=== PATIENT | female | born 1985 ===

== ENCOUNTER 2016-07-11 08:09 | Emergency (ER) | payer OTHER ==
[2016-07-11 08:09] VITALS: BMI 25.3
[2016-07-11 08:30] VITALS: BP 111/66; O2SAT 100
--- NOTE | 2016-07-11 08:34 | ED PDOC ---
HPI: General Adult Time Seen by Provider: 07/11/16 08:15 Chief Complaint (Nursing): Fever Chief Complaint (Provider): Fever History Per: Patient Onset/Duration Of Symptoms: Days (x6 days) Current Symptoms Are (Timing): Still Present Additional Complaint(s): 31 y/o female who presents to the emergency department with a complaint of a fever and a cough with sputum (green) since 07/06/2016. Patient states her son was diagnosed with pneumonia. Denies shortness of breath and vomiting. PMD: None Past Medical History Reviewed: Historical Data, Nursing Documentation, Vital Signs Vital Signs: Last Vital Signs Temp 101 F H 07/11/16 08:37 Pulse 94 H 07/11/16 08:22 Resp BP 111/66 07/11/16 08:22 Pulse Ox 100 07/11/16 08:36 - Medical History PMH: No Chronic Diseases - Surgical History Surgical History: No Surg Hx - Family History Family History: States: Unknown Family Hx - Social History Current smoker - smoking cessation education provided: No Alcohol: None Drugs: Denies - Immunization History Hx Tetanus Toxoid Vaccination: No Hx Influenza Vaccination: No Hx Pneumococcal Vaccination: No - Home Medications Home Medications: Ambulatory Orders Medication Instructions Recorded Azithromycin [Zithromax] 250 mg PO DAILY #6 tab 07/11/16 Promethazine/Codeine 5 ml PO Q8 #60 ml 07/11/16 [Codeine/Promethazine 10 MG/5 Ml-6.25 MG/5 Ml] - Allergies Allergies/Adverse Reactions: Allergies Allergy/AdvReac Type Severity Reaction Status Date / Time No Known Allergies Allergy Verified 07/11/16 08:13 Review of Systems ROS Statement: Except As Marked, All Systems Reviewed And Found Negative Constitutional: Positive for: Fever Respiratory: Positive for: Cough, Sputum (Green). Negative for: Shortness of Breath Gastrointestinal: Negative for: Vomiting Physical Exam - Reviewed Nursing Documentation Reviewed: Yes Vital Signs Reviewed: Yes - Physical Exam Appears: Positive for: Non-toxic, No Acute Distress Head Exam: Positive for: ATRAUMATIC, NORMOCEPHALIC Skin: Positive for: Normal Color, Warm, Dry ENT: Positive for: Normal ENT Inspection. Negative for: Pharyngeal Erythema Neck: Positive for: Normal, Supple Cardiovascular/Chest: Positive for: Regular Rate, Rhythm. Negative for: Murmur Respiratory: Positive for: Rhonchi (Scattered rhonchi to the left side). Negative for: Accessory Muscle Use, Wheezing, Respiratory Distress Neurologic/Psych: Positive for: Alert, Oriented - ECG O2 Sat by Pulse Oximetry: 100 (RA) Pulse Ox Interpretation: Normal Medical Decision Making Medical Decision Making: Time: 8:15 Initial impression: Initial plan: --ED Urine (POC) --Chest Portable (RAD) --Tylenol 650 mg PO --Influenza A B Stat --Revaluation Scribe Attestation: Documented by Queenie Couch, acting as a scribe for Barry Pastor MD. Provider Scribe Attestation: All medical record entries made by the Scribe were at my direction and personally dictated by me. I have reviewed the chart and agree that the record accurately reflects my personal performance of the history, physical exam, medical decision making, and the department course for this patient. I have also personally directed, reviewed, and agree with the discharge instructions and disposition. Disposition - Clinical Impression Clinical Impression: Bronchitis - Patient ED Disposition Is Patient to be Admitted: No Counseled Patient/Family Regarding: Studies Performed, Diagnosis, Need For Followup, Rx Given - Disposition Referrals: [facility] [Outside] Disposition: Routine/Home Disposition Time: 09:07 Condition: FAIR Prescriptions: Promethazine/Codeine [Codeine/Promethazine 10 MG/5 Ml-6.25 MG/5 Ml] 5 ml PO Q8 # 60 ml Azithromycin [Zithromax] 250 mg PO DAILY #6 tab Instructions: Acute Bronchitis (ED)
[2016-07-11 09:16] VITALS: PULSE 87; TEMP 98.6
--- NOTE | 2016-07-11 12:06 | RAD ---
HISTORY: cough COMPARISON: No prior. FINDINGS: LUNGS: Patchy opacity at right base. Possible early pneumonia. Followup advised. No other abnormal opacity identified. PLEURA: No significant pleural effusion identified, no pneumothorax apparent. CARDIOVASCULAR: Normal. OSSEOUS STRUCTURES: No significant abnormalities. VISUALIZED UPPER ABDOMEN: Normal. OTHER FINDINGS: None. IMPRESSION: Patchy opacity at right base. Possible pneumonia. Followup advised.
== END 2016-07-11 09:30 | disposition home or self-care (01) ==
LOC: H.ER 08:09
DX: J40 Bronchitis, not specified as acute or chronic (principal); R05 Cough; R50.9 Fever, unspecified

== ENCOUNTER 2017-12-25 14:24 | Emergency (ER) | payer OTHER ==
[2017-12-25 14:24] VITALS: BMI 25.3
[2017-12-25 14:31] VITALS: O2SAT 100
[2017-12-25] MEDS ORDERED: Lactated Ringer's 1,000 ML IV STA (15:16)
[2017-12-25 15:30] LABS: BASO % 0.3 % (0.0-2.0); EOS # 0.2 K/uL (0.0-0.7); EOS % 2.4 % (0.0-4.0); HEMOGLOBIN 13.6 g/dL (12.0-16.0); LYMPH # 2.4 K/uL (1.0-4.3); LYMPH % 32.4 % (20.0-40.0); MEAN CELL VOLUME 88.2 fl (81.0-99.0); MEAN CORPUSCULAR HEMOGLOBIN 29.9 pg (27.0-31.0); MEAN CORPUSCULAR HGB CONC 33.9 g/dL (33.0-37.0); MEAN PLATELET VOLUME 7.9 fl (7.2-11.7); MONO # 0.6 K/uL (0.0-0.8); MONO % 7.8 % (0.0-10.0); NEUT # 4.2 K/uL (1.8-7.0); NEUT % 57.1 % (50.0-75.0); NRBC % 0.1 % (0.0-0.0); RBC 4.56 Mil/uL (3.80-5.20); RED CELL DISTRIBUTION WIDTH 13.3 % (11.5-14.5); WHITE BLOOD COUNT 7.4 K/uL (4.8-10.8)
[2017-12-25 15:40] LABS: ALB/GLOB RATIO 1.1 (1.0-2.1); ALBUMIN 3.8 g/dL (3.5-5.0); ALT/SGPT 23 U/L (9-52); AST/SGOT 24 U/L (14-36); BLOOD UREA NITROGEN 13 mg/dl (7-17); CALCIUM 8.9 mg/dL (8.4-10.2); GFR NON-AFRICAN AMERICAN > 60
--- NOTE | 2017-12-25 15:52 | ED PDOC ---
HPI: Chest Pain Time Seen by Provider: 12/25/17 15:07 Chief Complaint (Nursing): Chest Pain Chief Complaint (Provider): chest pain History Per: Patient History/Exam Limitations: no limitations Onset/Duration Of Symptoms: Days (1 week) Additional Complaint(s): Nidia Bustos, a 32 year old female with no significant past medical history, presents to the emergency department with chest pain onset 1 week ago. Patient states she has been having pain in her throat associated with joint pain, malaise, fatigue, nausea and shortness of breath. She denies fever, chills, cough, runny nose, rash, swelling or diarrhea. Patient reports feeling weak, especially when exerting herself which makes her feel winded as well. She states she took alleve with minimal relief. No further medical complaints. PMD: None Past Medical History Reviewed: Historical Data, Nursing Documentation, Vital Signs Vital Signs: Last Vital Signs Temp 97.8 F 12/25/17 18:03 Pulse 62 12/25/17 18:03 Resp 15 12/25/17 18:03 BP 118/76 12/25/17 18:03 Pulse Ox 100 12/25/17 18:07 - Medical History PMH: No Chronic Diseases - Surgical History Surgical History: No Surg Hx - Family History Family History: States: Unknown Family Hx, Hypertension - Immunization History Hx Tetanus Toxoid Vaccination: No Hx Influenza Vaccination: No Hx Pneumococcal Vaccination: No - Home Medications Home Medications: Ambulatory Orders Medication Instructions Recorded Azithromycin [Zithromax] 250 mg PO DAILY #6 tab 07/11/16 Promethazine/Codeine 5 ml PO Q8 #60 ml 07/11/16 [Codeine/Promethazine 10 MG/5 Ml-6.25 MG/5 Ml] Ibuprofen [Motrin Tab] 600 mg PO Q8 PRN #60 tab 12/25/17 Nitrofurantoin Macrocrystals 1 cap PO BID #14 cap 12/25/17 [Macrobid] - Allergies Allergies/Adverse Reactions: Allergies Allergy/AdvReac Type Severity Reaction Status Date / Time No Known Allergies Allergy Verified 12/25/17 14:25 Review of Systems ROS Statement: Except As Marked, All Systems Reviewed And Found Negative Constitutional: Positive for: Weakness, Malaise. Negative for: Fever, Chills ENT: Positive for: Throat Pain. Negative for: Nose Discharge Cardiovascular: Positive for: Chest Pain Respiratory: Positive for: Shortness of Breath. Negative for: Cough Gastrointestinal: Positive for: Nausea. Negative for: Diarrhea Musculoskeletal: Positive for: Other (joint pain) Skin: Negative for: Rash Physical Exam - Reviewed Nursing Documentation Reviewed: Yes Vital Signs Reviewed: Yes - Physical Exam Appears: Positive for: Well, Non-toxic, No Acute Distress Head Exam: Positive for: ATRAUMATIC, NORMAL INSPECTION, NORMOCEPHALIC Skin: Positive for: Warm, Dry Eye Exam: Positive for: EOMI, PERRL ENT: Positive for: Pharynx Is (clear). Negative for: Tonsillar Exudate (or erythema) Neck: Positive for: Painless ROM, Supple Cardiovascular/Chest: Positive for: Regular Rate, Rhythm. Negative for: Murmur Respiratory: Positive for: Normal Breath Sounds. Negative for: Respiratory Distress Gastrointestinal/Abdominal: Positive for: Soft. Negative for: Tenderness Back: Positive for: Normal Inspection. Negative for: Muscle Spasm Extremity: Positive for: Normal ROM. Negative for: Deformity Lymphatic: Negative for: Adenopathy Neurologic/Psych: Positive for: Alert. Negative for: Motor/Sensory Deficits - Laboratory Results Result Diagrams: 12/25/17 15:26 12/25/17 15:26 - ECG O2 Sat by Pulse Oximetry: 100 (RA) Pulse Ox Interpretation: Normal Medical Decision Making Medical Decision Making: Time: 15:07 Initial Impression: viral syndrome differential includes but not limited to flu , dehydration, , electrolyte abnormality, thyroid disease Initial Plan: --EKG --CMP --Magnesium stat --Phosphorus stat --Thyroid stimulation --Troponin --Ed urine --Ed urine dipstick --CBC w/ differential Time: 2 --Lab work demonstrates UTI, otherwise no clinically significant abnormalities. Chest x-ray is within normal limits. On reevaluation, patient is in no acute distress and there are no new findings. Patient is medically stable for discharge home. Discussed findings and plan of care with patient. Scribe Attestation: Documented by Jane Masters, acting as a scribe for Linh Albert MD . Provider Scribe Attestation: All medical record entries made by the Scribe were at my direction and personally dictated by me. I have reviewed the chart and agree that the record accurately reflects my personal performance of the history, physical exam, medical decision making, and the department course for this patient. I have also personally directed, reviewed, and agree with the discharge instructions and disposition. Disposition - Clinical Impression Clinical Impression: Arthralgia of multiple joints, UTI (urinary tract infection) - Disposition Referrals: [facility] [Outside] ([facility]) Disposition: Routine/Home Disposition Time: 18:02 Condition: STABLE Prescriptions: Ibuprofen [Motrin Tab] 600 mg PO Q8 PRN #60 tab PRN Reason: Pain, Moderate (4-7) Nitrofurantoin Macrocrystals [Macrobid] 1 cap PO BID #14 cap Instructions: Urinary Tract Infection, Adult (DC), Joint Pain Forms: [facility] ED School/Work Excuse Print Language: ITALIAN
[2017-12-25 17:34] LABS: SQUAMOUS EPITHIAL 5 /hpf (0-5); URINE BACTERIA RARE (<OCC); URINE BILIRUBIN NEGATIVE (NEGATIVE); URINE BLOOD NEGATIVE (NEGATIVE); URINE CLARITY SLIGHTY-CLOUDY (Clear); URINE COLOR YELLOW (YELLOW); URINE GLUCOSE (UA) NEG (Normal); URINE LEUKOCYTE ESTERASE MOD Leu/uL (Negative); URINE PROTEIN NEGATIVE (NEGATIVE); URINE UROBILINOGEN 0.2-1.0 mg/dL (0.2-1.0)
--- NOTE | 2017-12-25 18:03 | RAD ---
Date of service: 12/25/2017 HISTORY: cp COMPARISON: No prior. TECHNIQUE: Chest PA and lateral FINDINGS: LUNGS: No active pulmonary disease. PLEURA: No significant pleural effusion identified. No pneumothorax apparent. CARDIOVASCULAR: Normal. OSSEOUS STRUCTURES: No significant abnormalities. VISUALIZED UPPER ABDOMEN: Normal. OTHER FINDINGS: None. IMPRESSION: No active disease.
[2017-12-25 18:04] VITALS: BP 118/76; PULSE 62; RESP 15; TEMP 97.8
--- NOTE | 2017-12-26 09:27 | CARD ---
APPROVED REPORT Date of service: 12/25/2017 <Conclusion> Normal sinus rhythm Normal ECG
== END 2017-12-25 18:03 | disposition home or self-care (01) ==
LOC: H.ER 14:24
DX: N39.0 Urinary tract infection, site not specified (principal); M25.50 Pain in unspecified joint
CPT/HCPCS: 71046; 80053; 81003; 81025; 83735; 84100; 84443; 84484; 85025; 86308; 87070; 87086; 87430; 87804; 93005; 96361; 96374; 99284; J1885; J7120

== ENCOUNTER 2018-01-24 09:24 | Emergency (ER) | payer OTHER ==
[2018-01-24 09:24] VITALS: BMI 25.3
[2018-01-24 09:29] VITALS: O2SAT 100
--- NOTE | 2018-01-24 10:47 | ED PDOC ---
HPI: Female Pain Time Seen by Provider: 01/24/18 10:23 Chief Complaint (Nursing): Female Genitourinary Chief Complaint (Provider): Dysuria History Per: Patient History/Exam Limitations: no limitations Onset/Duration Of Symptoms: Days (15) Current Symptoms Are (Timing): Still Present Additional Complaint(s): Pt. with dysuria for 15 days, freq urination. No vaginal bleeding or dc. No abd pain, weakness, headache, back pain, nausea, vomit. Past Medical History Reviewed: Nursing Documentation, Vital Signs Vital Signs: Last Vital Signs Temp 98.6 F 01/24/18 09:27 Pulse 64 01/24/18 09:27 Resp 18 01/24/18 09:27 BP 114/76 01/24/18 09:27 Pulse Ox 100 01/24/18 09:27 - Medical History Other PMH: uti - Surgical History Surgical History: No Surg Hx - Family History Family History: States: Unknown Family Hx - Immunization History Hx Tetanus Toxoid Vaccination: No Hx Influenza Vaccination: No Hx Pneumococcal Vaccination: No - Home Medications Home Medications: Ambulatory Orders Medication Instructions Recorded Azithromycin [Zithromax] 250 mg PO DAILY #6 tab 07/11/16 Promethazine/Codeine 5 ml PO Q8 #60 ml 07/11/16 [Codeine/Promethazine 10 MG/5 Ml-6.25 MG/5 Ml] Ibuprofen [Motrin Tab] 600 mg PO Q8 PRN #60 tab 12/25/17 Nitrofurantoin Macrocrystals 1 cap PO BID #14 cap 12/25/17 [Macrobid] Amoxicillin/Clavulanate [Augmentin 1 tab PO BID 5 Days tab 01/24/18 875 MG-125 MG] - Allergies Allergies/Adverse Reactions: Allergies Allergy/AdvReac Type Severity Reaction Status Date / Time No Known Allergies Allergy Verified 12/25/17 14:25 Review of Systems Constitutional: Negative for: Fever, Weakness Cardiovascular: Negative for: Chest Pain, Light Headedness Respiratory: Negative for: Cough, Shortness of Breath Gastrointestinal: Negative for: Nausea, Vomiting, Abdominal Pain, Diarrhea Genitourinary Female: Positive for: Dysuria, Frequency. Negative for: Incontinence, Hematuria, Vaginal Discharge, Vaginal Bleeding Musculoskeletal: Negative for: Neck Pain, Arm Pain Skin: Negative for: Rash Neurological: Negative for: Weakness Physical Exam - Reviewed Nursing Documentation Reviewed: Yes Vital Signs Reviewed: Yes - Physical Exam ENT: Positive for: Normal ENT Inspection Neck: Positive for: Normal Cardiovascular/Chest: Positive for: Regular Rate, Rhythm Respiratory: Positive for: CNT, Normal Breath Sounds Gastrointestinal/Abdominal: Positive for: Soft, Tenderness (suprapubic; no L or R quadrant tendernes in upper or lower. ) Back: Positive for: Normal Inspection. Negative for: L CVA Tenderness, R CVA Tenderness Extremity: Positive for: Normal ROM. Negative for: Tenderness - ECG O2 Sat by Pulse Oximetry: 100 Pulse Ox Interpretation: Normal - Progress ED Course And Treament: 1152: Pt. urine from previous visit showed lactobacillus. Will rx augmentin. Stable. AAOx3. Pain free. Disposition - Clinical Impression Clinical Impression: Urinary tract infection - Patient ED Disposition Is Patient to be Admitted: No Counseled Patient/Family Regarding: Studies Performed, Diagnosis, Need For Followup, Rx Given - Disposition [facility] - 01/25/18 Disposition: Routine/Home Disposition Time: 11:53 Condition: STABLE Additional Instructions: Return if not better in 3 days. Prescriptions: Amoxicillin/Clavulanate [Augmentin 875 MG-125 MG] 1 tab PO BID 5 Days tab Instructions: Urinary Tract Infection, Adult (DC) Print Language: YAKUT
[2018-01-24 12:07] VITALS: BP 114/80; PULSE 62; RESP 14; TEMP 98.5
== END 2018-01-24 12:00 | disposition home or self-care (01) ==
LOC: H.ER 09:24
DX: N39.0 Urinary tract infection, site not specified (principal)

== ENCOUNTER 2018-03-27 16:42 | Emergency (ER) | payer SELFPAY ==
[2018-03-27 16:43] VITALS: BMI 25.3
[2018-03-27 17:09] VITALS: RESP 19
--- NOTE | 2018-03-27 17:16 | ED PDOC ---
HPI: Abdomen Time Seen by Provider: 03/27/18 17:06 Chief Complaint (Nursing): Abdominal Pain History Per: Patient Onset/Duration Of Symptoms: Days (2) Current Symptoms Are (Timing): Intermittent Episodes Severity: Mild Location Of Pain/Discomfort: LLQ, Periumbilical Quality Of Discomfort: Unable To Describe Associated Symptoms: Urinary Symptoms. denies: Fever, Nausea, Vomiting, Diarrhea Exacerbating Factors: None Alleviating Factors: None Additional Complaint(s): Left periumbilical and LLQ abd pain since yesterday assoc with dysuria. Denies NVD. Denies fever. Past Medical History Vital Signs: Last Vital Signs Temp 98.3 F 03/27/18 17:05 Pulse 88 03/27/18 17:05 Resp 19 03/27/18 17:05 BP 124/75 03/27/18 17:05 Pulse Ox 100 03/27/18 17:05 - Medical History PMH: No Chronic Diseases - Family History Family History: States: Unknown Family Hx - Immunization History Hx Tetanus Toxoid Vaccination: No Hx Influenza Vaccination: No Hx Pneumococcal Vaccination: No - Home Medications Home Medications: Ambulatory Orders Medication Instructions Recorded Azithromycin [Zithromax] 250 mg PO DAILY #6 tab 07/11/16 Promethazine/Codeine 5 ml PO Q8 #60 ml 07/11/16 [Codeine/Promethazine 10 MG/5 Ml-6.25 MG/5 Ml] Ibuprofen [Motrin Tab] 600 mg PO Q8 PRN #60 tab 12/25/17 Nitrofurantoin Macrocrystals 1 cap PO BID #14 cap 12/25/17 [Macrobid] Amoxicillin/Clavulanate [Augmentin 1 tab PO BID 5 Days tab 01/24/18 875 MG-125 MG] Sulfamethoxazole/Trimethoprim 1 tab PO BID #20 tab 03/27/18 [Bactrim DS 800 mg-160 mg] - Allergies Allergies/Adverse Reactions: Allergies Allergy/AdvReac Type Severity Reaction Status Date / Time No Known Allergies Allergy Verified 12/25/17 14:25 Review of Systems ROS Statement: Except As Marked, All Systems Reviewed And Found Negative Constitutional: Negative for: Fever Gastrointestinal: Positive for: Abdominal Pain. Negative for: Nausea, Vomiting, Diarrhea Genitourinary Female: Positive for: Dysuria Physical Exam - Reviewed Nursing Documentation Reviewed: Yes Vital Signs Reviewed: Yes - Physical Exam Appears: Positive for: Non-toxic, No Acute Distress Head Exam: Positive for: ATRAUMATIC, NORMAL INSPECTION, NORMOCEPHALIC Skin: Positive for: Normal Color, Warm, DRY Eye Exam: Positive for: EOMI, Normal appearance, PERRL ENT: Positive for: Normal ENT Inspection Neck: Positive for: Normal, Painless ROM Cardiovascular/Chest: Positive for: Regular Rate, Rhythm Respiratory: Positive for: CNT, Normal Breath Sounds Gastrointestinal/Abdominal: Positive for: Soft, Tenderness (Mild left periumbilical and LLQ) Back: Positive for: Normal Inspection. Negative for: L CVA Tenderness, R CVA Tenderness Extremity: Positive for: Normal ROM Neurologic/Psych: Positive for: Alert, Oriented - Laboratory Results Result Diagrams: 03/27/18 17:29 03/27/18 17:29 - ECG O2 Sat by Pulse Oximetry: 100 Disposition - Clinical Impression Clinical Impression: Urinary tract infection - Patient ED Disposition Is Patient to be Admitted: No Counseled Patient/Family Regarding: Studies Performed, Diagnosis, Need For Followup, Rx Given - Disposition Referrals: [facility] [Outside] Disposition: Routine/Home Disposition Time: 18:46 Condition: FAIR Prescriptions: Sulfamethoxazole/Trimethoprim [Bactrim DS 800 mg-160 mg] 1 tab PO BID #20 tab Instructions: Urinary Tract Infections in Adults Forms: [facility] (Ukrainian) Print Language: PORTUGUESE
[2018-03-27 17:40] LABS: BASO % 0.5 % (0.0-2.0); EOS # 0.3 K/uL (0.0-0.7); EOS % 4.3 % (0.0-4.0); LYMPH # 2.1 K/uL (1.0-4.3); LYMPH % 35.1 % (20.0-40.0); MEAN CELL VOLUME 88.1 fl (81.0-99.0); MEAN CORPUSCULAR HEMOGLOBIN 28.9 pg (27.0-31.0); MEAN CORPUSCULAR HGB CONC 32.8 g/dL (33.0-37.0); MEAN PLATELET VOLUME 7.9 fl (7.2-11.7); MONO # 0.7 K/uL (0.0-0.8); MONO % 11.9 % (0.0-10.0); NEUT # 2.9 K/uL (1.8-7.0); NEUT % 48.2 % (50.0-75.0); NRBC % 0.1 % (0.0-0.0); RBC 4.5 Mil/uL (3.80-5.20)
[2018-03-27 17:43] LABS: ALB/GLOB RATIO 1.1 (1.0-2.1); BLOOD UREA NITROGEN 15 mg/dl (7-17); CALCIUM 8.6 mg/dL (8.4-10.2); GFR NON-AFRICAN AMERICAN > 60
[2018-03-27 17:47] LABS: ALT/SGPT 16 U/L (9-52); AST/SGOT 30 U/L (14-36)
[2018-03-27 19:14] VITALS: BP 126/78; PULSE 78; TEMP 97.5; O2SAT 98
== END 2018-03-27 19:14 | disposition home or self-care (01) ==
LOC: H.ER 16:42
DX: N39.0 Urinary tract infection, site not specified (principal)